=== PATIENT | female | born 1985 ===

== ENCOUNTER 2019-02-19 11:20 | Day surgery (SDC) | payer BC ==
[2019-02-19] VITALS (9 sets, daily range): BP systolic 103–139; BP diastolic 50–76
[~2019-02-19] VITALS: Ht 160 cm; Wt 99.8 kg
--- NOTE | 2019-02-19 07:47 | Operative Note - PDOC ---
Operative Note Operative Note Pre-op Diagnosis: left hip labral tear Procedure: see op report Post-op Diagnosis: same as pre-op plus Anesthesia: regional Specimen: none Complications: none Condition: stable Estimated Blood Loss: none Implant(s) used?: Yes Tacho Roman MD Feb 19, 2019 07:47
--- NOTE | 2019-02-19 07:47 | Pre-Procedure Note/Attestation ---
Pre-Procedure Note/Attestation Complete Prior to Procedure Planned Procedure: left Procedure Narrative: hip arthroscopy, labral repair Indications for Procedure Pre-Operative Diagnosis: left hip labral tear Attestation I attest that I discussed the nature of the procedure; its benefits; risks and complications; and alternatives (and the risks and benefits of such alternatives ), prior to the procedure, with the patient (or the patient's legal patient representative). I attest that, if there was a reasonable possibility of needing a blood transfusion, the patient (or the patient's legal patient representative) was given the [facility] standardized written summary, pursuant to the Herve Eliud Blood Safety Act ([place] Health and Safety Code # 1645, as amended). I attest that I re-evaluated the patient just prior to the surgery and that there has been no change in the patient's H&P, except as documented below: Tacho Roman MD Feb 19, 2019 07:47
[~2019-02-19 11:20] MED LIST: D5 1/2NS 1,000 ML IV SCH; HYDROcodone/Acetamin 5/325 tab ORAL PRN; HYDROmorphone 1mg/ml Carpuject SUBQ PRN; NS Irrig 4000ml IRRIG ONE; Tylenol #3 tab (300mg/30mg) ORAL PRN; ceFAZolin 1gm IVPB IVPB ONE; celeBREX 200mg Cap **SURGERY PATIENTS ONLY ORAL ONE; oxyCONTIN 20mg tab ORAL ONE
[2019-02-19] MEDS ORDERED: CITALOPRAM HBR20 M1 ORAL (11:52)
[2019-02-19] MEDS ORDERED: celeBREX 200mg Cap **SURGERY PATIENTS ONLY ORAL ONE (12:11)
[2019-02-19] MEDS ORDERED: oxyCONTIN 20mg tab ORAL ONE (12:11)
[2019-02-19] MEDS ORDERED: LR 1000ml 1,000 ML IVLG SCH (16:01)
[2019-02-19] MEDS ORDERED: Ketorolac 30mg Inj ONE (16:02)
[2019-02-19] MEDS ORDERED: Kenalog-40 1ml Vial ONE (16:02)
[2019-02-19] MEDS ORDERED: Duramorph PF 5mg/10ml amp ONE (16:02)
[2019-02-19] MEDS ORDERED: EPINEPHrine 1mg/1ml Amp ONE (16:03)
[2019-02-19] MEDS ORDERED: Lidocaine 1% MPF 10mg/ml 5ml ONE (16:10)
[2019-02-19] MEDS ORDERED: Dexamethasone 4mg/ml vial ONE ×2 (16:10→16:18)
[2019-02-19] MEDS ORDERED: Sodium Chloride 10ml vial INJ ONE ×2 (16:10→16:52)
[2019-02-19] MEDS ORDERED: Ketamine 500mg Inj ONE (16:11)
[2019-02-19] MEDS ORDERED: Ropivacaine 5mg/ml Vial 30ml INJ ONE (16:11)
[2019-02-19] MEDS ORDERED: Midazolam 2mg/2ml Inj IVP PRN (16:15)
[2019-02-19] MEDS ORDERED: Acetaminophen (Non formulary) 100 ML IV ONE (16:15)
[2019-02-19] MEDS ORDERED: Atropine Sulfate 0.4mg/ml inj IVP PRN (16:15)
[2019-02-19] MEDS ORDERED: Metoclopramide 10mg/2ml Inj IVP PRN (16:15)
[2019-02-19] MEDS ORDERED: LORazepam Inj 2mg/ml 1ml IV PRN (16:15)
[2019-02-19] MEDS ORDERED: Labetalol 5mg/ml 20ml vial IV PRN (16:15)
[2019-02-19] MEDS ORDERED: Ketorolac 30mg Inj IV PRN ×2 (16:15)
[2019-02-19] MEDS ORDERED: Meperidine 50mg/ml Inj(FOR RIGORS ONLY) IVP PRN (16:15)
[2019-02-19] MEDS ORDERED: DiphenhydrAMINE 50mg/ml Inj IVP PRN (16:15)
[2019-02-19] MEDS ORDERED: fentaNYL 100 mcg/2 mL IV PRN (16:15)
[2019-02-19] MEDS ORDERED: HYDROcodone/Acetamin 5/325 tab ORAL PRN (16:15)
[2019-02-19] MEDS ORDERED: HYDROcodone/Acetamin 7.5/325 tab ORAL PRN (16:15)
[2019-02-19] MEDS ORDERED: oxyCODONE HCL/Acetaminophen 5/325mg ORAL PRN (16:15)
[2019-02-19] MEDS ORDERED: Hydromorphone 0.5mg/0.5ml inj IVP PRN (16:15)
[2019-02-19] MEDS ORDERED: Sterile Water Irrig 1000ml IRRIG ONE (16:30)
[2019-02-19] MEDS ORDERED: LR 1000ml ONE (16:30)
[2019-02-19] MEDS ORDERED: Propofol 200mg/20ml IV ONE (16:30)
[2019-02-19] MEDS ORDERED: Bupivacaine 0.25% Inj 30ml INJ ONE (17:02)
[2019-02-19] MEDS ORDERED: NS Irrig 4000ml IRRIG ONE ×5 (17:07→18:14)
--- NOTE | 2019-02-19 17:53 | Anethesia Preoperative Eval ---
Anesthesia Pre-op PMH/ROS General Date of Evaluation: Feb 19, 2019 Time of Evaluation: 16:29 Anesthesiologist: Dena ASA Score: ASA 2 Mallampati Score Class I : Soft palate, uvula, fauces, pillars visible Class II: Soft palate, uvula, fauces visible Class III: Soft palate, base of uvula visible Class IV: Only hard plate visible Mallampati Classification: Class II Surgeon: Abel Diagnosis: L Hip Pain Surgical Procedure: L Hip Arhroscopy Anesthesia History: none Family History: no anesthesia problems Allergies: Coded Allergies: No Known Allergies (Unverified , 02/18/19) Medications: see eMAR Patient NPO?: Yes Past Medical History Pulmonary: Reports: asthma Other: obesity - Morbid BMI 40 Anesthesia Pre-op Phys. Exam Physician Exam Last Vital Signs Date Time Temp Pulse Resp B/P (MAP) Pulse Ox O2 Delivery O2 Flow Rate FiO2 02/19/19 12:15 Room Air 02/19/19 11:55 97.7 66 18 121/76 96 Constitutional: NAD Neurologic: CN 2-12 intact Cardiovascular: RRR Respiratory: CTA Gastrointestinal: S/NT/ND Airway Exam Mallampati Score: Class II MO: full ROM: full Teeth: intact Anesthesia Pre-op A/P Labs Urine Test Test 02/19/19 11:30 Urine HCG, Qualitative Negative (NEGATIVE) Risk Assessment & Plan Assessment: ASA 2 Plan: GA, SED, GlideScope Go, LPB Status Change Before Surgery: No Pre-Antibiotics Dru Grams Ancef IV Given Within 1 Hr of Incision: Yes Time Given: 16:56 Clyde Fernandes MD Feb 19, 2019 17:53
--- NOTE | 2019-02-19 17:55 | Immediate Post-Op Evaluation ---
Immediate Post-Op Evalulation Immediate Post-Op Evalulation Procedure: L Hip Arthroscopy Date of Evaluation: Feb 19, 2019 Time of Evaluation: 19:25 IV Fluids: 1100 LR Blood Products: 0 Estimated Blood Loss: 10 Urinary Output: 0 Blood Pressure Systolic: 139 Blood Pressure Diastolic: 62 Pulse Rate: 80 Respiratory Rate: 16 O2 Sat by Pulse Oximetry: 100 Temperature (Fahrenheit): 98.9 Pain Score (1-10): 2 Nausea: No Vomiting: No Complications 0 Patient Status: awake, reacts, patent, extubated, none Hydration Status: adequate Dru Grams Ancef IV Given Within 1 Hr of Incision: Yes Time Given: 16:56 Clyde Fernandes MD Feb 19, 2019 17:55
--- NOTE | 2019-02-19 17:56 | 48 Hour Post Anesthesia Eval ---
Post Anesthesia Evaluation Procedure: L Hip Arthroscopy Date of Evaluation: Feb 19, 2019 Airway: patent Nausea: No Vomiting: No Pain Intensity: 2 Hydration Status: adequate Cardiopulmonary Status: Stable Mental Status/LOC: patient returned to baseline Follow-up Care/Observations: 0 Post-Anesthesia Complications: 0 Follow-up care needed: ready to discharge Clyde Fernandes MD Feb 19, 2019 17:56
[2019-02-19] MEDS ORDERED: Duramorph PF 5mg/10ml amp IT ONE ×2 (18:25)
[2019-02-19] MEDS ORDERED: Neostigmine 1mg/ml 10ml Inj ONE (18:58)
[2019-02-19] MEDS ORDERED: Glycopyrrolate 0.2mg/ml 1ml Vial ONE (18:58)
[2019-02-19] MEDS ORDERED: Hydrogen Peroxide 473ml Bottle TOPIC ONE (19:03)
--- NOTE | 2019-02-19 22:45 | Operative Note - Dictated ---
DATE OF OPERATION: 02/19/2019 PREOPERATIVE DIAGNOSIS: Left hip anterior labral tear. POSTOPERATIVE DIAGNOSES: 1. Left hip anterior labral tear. 2. Grade 2 chondral damage, anterior superior acetabulum. 3. Left hip synovitis. PROCEDURES: 1. Left hip arthroscopic labral stabilization. 2. Left hip chondroplasty, grade 2 chondral damage, superior lateral acetabulum. 3. Synovectomy of the left hip. INDICATION FOR PROCEDURE: The patient is a pleasant female who has had continued anterior left hip pain limiting her activities of weightbearing, . She failed conservative treatment, elected to undergo left hip labral stabilization. Risks, limitations, expectations, complication of procedure were discussed in detail. All questions addressed. DESCRIPTION OF PROCEDURE: After informed consent was obtained, the patient was brought to the operating room. The patient was placed under spinal anesthesia. Left hip was prepped and draped in a sterile manner. Time-out was performed. Ancef was administered. The patient was then carefully positioned on the fracture table with care to pad all the extremities. At this point, the hip was distracted to allow access into the hip joint. Then the left hip was placed on traction and it was then prepped and draped in a usual fashion. A lateral portal was then established along the spinal needle guidewire. Once we were inside , working portal was established from inside out. At this point, a complete capsular release anteriorly was performed for better movement of the cannulas. Once this was done, diagnostic arthroscopy of the hip was performed which showed labral tear anteriorly, subchondral damage grade 2 in the anterior superior aspect of the acetabulum. The capsule was debrided to allow visualization and access into the hip joint. The rectus femoris was elevated off the superior lateral acetabulum. Once the complete synovectomy was performed, attention turned towards the arthroscopic labral stabilization. Three sutures were then placed in the labrum along with three anchors. Once that was done, there was a subchondral flap along the anterior superior margin. Chondroplasty was performed and with stable rim of tissue. Once this was done, the instruments were removed. Portal sites were closed using 3-0 Monocryl sutures. Steri-Strips and a sterile dressing were applied. The patient awoken and taken to recovery room with stable vital signs. ESTIMATED BLOOD LOSS: None. COMPLICATIONS: None. SPECIMENS: None. IMPLANTS: Include three Arthrex PushLock anchors. Tacho Roman M.D. DR: Tony JOB#: [id number] CC:
--- NOTE | 2019-02-23 10:44 | Diagnostic Imaging Report ---
Indication: Intraoperative imaging COMPARISON: None FINDINGS: A single AP fluoroscopic image of the left hip was obtained intraoperatively. No contrast demonstrated on the single view. Hip appears in normal alignment. No obvious abnormalities identified. Images are limited due to the fluoroscopic technique. Fluoroscopic time 2.7 seconds IMPRESSION: Intraoperative imaging as described above
== END 2019-02-19 20:30 | disposition home or self-care (01) ==
LOC: SUR 11:20
DX: S73.102A Unspecified sprain of left hip, initial encounter (principal); M65.9 Synovitis and tenosynovitis, unspecified; E66.9 Obesity, unspecified; Z68.39 Body mass index [BMI] 39.0-39.9, adult; F41.9 Anxiety disorder, unspecified; X58.XXXA Exposure to other specified factors, initial encounter; Y92.9 Unspecified place or not applicable
CPT/HCPCS: 29863; 29916; 73502; 76000; 81025; J0171; J0690; J1100; J1885; J2250; J2405; J2704; J2710; J2765; J2795; J3301; J3490; 94003; 94150